=== PATIENT | male | born 1945 | race Caucasian/White ===

== ENCOUNTER 2021-01-11 12:08 | Emergency (ER) | payer MEDICARE ==
--- NOTE | 2021-01-11 13:07 | XRAY ---
Indication: Short of breath. Low blood pressure. Comparison: October 24, 2020. Portable chest now overpenetrated in technique, obscuring previous left hilar masslike opacity. Remaining lungs hyperinflated and clear with again incidental lingula calcified granuloma. Heart not enlarged with new right Port a Cath. Bony thorax intact again with left axillary esteban dissection.
[2021-01-11 13:20] LABS: Hematocrit 29.1 % (42-50); Hemoglobin 9.4 gm/dl (12.5-18.0); Mean Cell Volume 95.1 fl (78-100); Mean Corpuscular Hemoglobin 30.7 pg (26-32); Mean Corpuscular Hgb Concent. 32.3 g/dl (32-36); Mean Platelet Volume 10.2 fl (7.5-11.0); Platelet Count 250 K/mm3 (150-450); Red Blood Count 3.06 M/mm3 (4.1-5.6); Red Cell Distribution Width 15.2 % (11.5-14.0); White Blood Count 7.3 K/mm3 (4.0-10.5)
[2021-01-11 13:35] LABS: ALBUMIN 3.8 g/dL (3.5-5.0); ANION GAP 14.7 MEQ/L (5-15); BILIRUBIN,TOTAL 0.8 mg/dL (0.2-1.3); Calcium 9.5 mg/dL (8.4-10.2); Creatinine 1 2.51 mg/dL (0.66-1.25); EST GLOMERULAR FILTRATION RATE 26.8 ML/MIN; Potassium 3.1 mmol/L (3.5-5.1)
--- NOTE | 2021-01-11 13:36 | ERPHSYRPT ---
- History of Present Illness Time Seen by Provider: 01/11/21 12:30 Source: patient Exam Limitations: no limitations Patient Subjective Stated Complaint: Hypotension Triage Nursing Assessment: Patient brought back to ED via w/c and transferred to bed with assist of 1. Patient A+O X3. Patient's skin pink, warm and dry. Patient complains of weakness, hypotension and dizziness. Patient's reports blood pressure of 87/61 then error reading. 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 Patient had last radiation tx on Monday and 3/4 chemo treatments, which usually makes him weak for several weeks. Patient denies pain or discomfort. Physician History: Patient is a 75-year-old male with a history of small cell carcinoma left lung on chemo and radiation presents to our ED with his for evaluation of weakness dizziness. checked patient's blood pressure at home and it read 87/61. However this was associated with a air signal. Patient's blood pressure is normal in our ED. Patient feels somewhat short of breath. He states his throat feels dry. No fever. No nausea or vomiting. No diarrhea. No rash. Symptoms are constant. Symptoms are moderate in intensity. No specific worsening improving factors. at bedside. They voiced no other complaints or concerns at this time. Timing/Duration: today Severity: moderate Modifying Factors: Improves With: nothing Associated Symptoms: denies symptoms Allergies/Adverse Reactions: cefadroxil [From Ultracef] Allergy (Verified 01/11/21 12:47) Penicillins Allergy (Verified 01/11/21 12:47) Hx Influenza Vaccination/Date Given: Yes (2020) Immunizations Up to Date: Yes Travel Risk - International Travel Have you traveled outside of the country in past 3 weeks: No - Coronavirus Screening Are you exhibiting any of the following symptoms?: No Close contact with a COVID-19 positive Pt in past 14-21 Days: No - Vaccine Status Have you recieved a Covid-19 vaccination: Yes [employer] - Vaccination Dates Date of 2cond Vaccination (if applicable): June 2020 Comment: Booster October 2020 - Review of Systems Constitutional: No Symptoms, No Fever, No Chills Eyes: No Symptoms Ears, Nose, & Throat: No Symptoms Respiratory: No Symptoms, No Cough, No Dyspnea Cardiac: No Symptoms, No Chest Pain, No Edema, No Syncope Abdominal/Gastrointestinal: No Symptoms, No Abdominal Pain, No Nausea, No Vomiti ng, No Diarrhea Genitourinary Symptoms: No Symptoms, No Dysuria Musculoskeletal: No Symptoms, No Back Pain, No Neck Pain Skin: No Symptoms, No Rash Neurological: No Symptoms, No Dizziness, No Focal Weakness, No Sensory Changes Psychological: No Symptoms Endocrine: No Symptoms Hematologic/Lymphatic: No Symptoms Immunological/Allergic: No Symptoms All Other Systems: Reviewed and Negative - Past Medical History Pertinent Past Medical History: Yes ENT History: Macular Degeneration Cardiac History: Arrhythmia, High Cholesterol, Hypertension Other Medical History: small cell lung cancer left dx in October 2020. afib. macular degeneration Left eye - Past Surgical History Past Surgical History: Yes Neuro Surgical History: No Pertinent History Cardiac: No Pertinent History Respiratory: No Pertinent History Gastrointestinal: No Pertinent History Genitourinary: No Pertinent History Musculoskeletal: Orthopedic Surgery Male Surgical History: No Pertinent History Other Surgical History: Biopsy of throat for Cancer October 2020. Port placement October 2020. 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 Ly mph nodes removed from left arm 6 years ago. lower back surgery with rods/plates and screws 2009 - Social History Smoking Status: Former smoker Exposure to second hand smoke: No Drug Use: none Patient Lives Alone: No - Nursing Vital Signs Nursing Vital Signs: Initial Vital Signs Temperature 97.6 F 01/11/21 12:22 Pulse Rate 92 H 01/11/21 12:22 Respiratory Rate 18 01/11/21 12:22 Blood Pressure 126/96 01/11/21 12:22 O2 Sat by Pulse Oximetry 99 01/11/21 12:22 Pain Scale Pain Intensity 0 - Physical Exam General Appearance: no apparent distress, alert Eye Exam: PERRL/EOMI, eyes nml inspection Ears, Nose, Throat Exam: normal ENT inspection, TMs normal, pharynx normal, moist mucous membranes Neck Exam: normal inspection, non-tender, supple, full range of motion Respiratory Exam: normal breath sounds, lungs clear, airway intact, No respiratory distress Cardiovascular Exam: regular rate/rhythm, normal heart sounds, normal peripheral pulses Gastrointestinal/Abdomen Exam: soft, normal bowel sounds, No tenderness, No mass Back Exam: normal inspection, normal range of motion, No CVA tenderness, No vertebral tenderness Extremity Exam: normal inspection, normal range of motion, pelvis stable Neurologic Exam: alert, oriented x 3, cooperative, normal mood/affect, sensation nml, No motor deficits Skin Exam: normal color, warm, dry, No rash Lymphatic Exam: No adenopathy SpO2 Interpretation: normal SpO2: 100 O2 Delivery: Room Air - Course Nursing assessment & vital signs reviewed: Yes - Radiology Exams Chest X-ray Interpretation: Teleradiologist Report (Portable chest now shows overpenetrated technique previous left hilar masslike opacity. Remaining lungs are hyperinflated and clear with incidental lingula calcified granuloma. Heart not enlarged with no right Port-A-Cath. Bony thorax intact with left axillary esteban dissection.) Ordered Tests: Active Orders 24 hr Category Date Time Status Classified Ad Clerk STAT Care 01/11/21 12:38 Active IV Insertion STAT Care 01/11/21 12:38 Active Pulse Oximetry (ED) STAT Care 01/11/21 12:38 Active CHEST 1 VIEW (PORTABLE) Stat Exams 01/11/21 12:40 Completed CBC W DIFF Stat Lab 01/11/21 13:02 Completed CMP Stat Lab 01/11/21 13:02 Completed D-DIMER QUANTITATIVE Stat Lab 01/11/21 13:02 Completed MAGNESIUM Stat Lab 01/11/21 13:02 Completed Manual Differential NC Stat Lab 01/11/21 13:02 Completed Medication Summary Generic Name Dose Route Start Last Admin Trade Name Freq PRN Reason Stop Dose Admin Magnesium Sulfate/Dextrose 100 mls @ 100 mls/hr 01/11/21 13:45 01/11/21 15:14 Magnesium 1 Gm / 100 Ml D5w IV 01/11/21 15:44 100 mls/hr Q1H YUKO Administration Potassium Chloride 20 meq in 100 mls @ 50 mls/hr 01/11/21 14:30 01/11/21 16:45 Potassium Chloride 20 Meq In Water 100ml IV 01/11/21 18:29 50 mls/hr Q2H YUKO Administration Discontinued Medications Generic Name Dose Route Start Last Admin Trade Name Freq PRN Reason Stop Dose Admin Sodium Chloride 1,000 mls @ 999 mls/hr 01/11/21 13:38 01/11/21 15:24 Sodium Chloride 0.9% 1000 Ml IV 01/11/21 14:38 Infused .Q1H1M STA Infusion Sodium Chloride Confirm 01/11/21 13:53 Sodium Chloride 0.9% 1000 Ml Administered 01/11/21 13:54 Dose 1,000 mls @ ud .ROUTE .STK-MED ONE Ondansetron HCl 4 mg 01/11/21 13:50 01/11/21 13:55 Ondansetron Hcl 4 Mg/2 Ml Vial IV 01/11/21 13:51 4 mg STAT ONE Administration Ondansetron HCl Confirm 01/11/21 13:51 Ondansetron Hcl 4 Mg/2 Ml Vial Administered 01/11/21 13:52 Dose 4 mg .ROUTE .STK-MED ONE Potassium Chloride 40 meq 01/11/21 13:37 01/11/21 13:55 Potassium Chloride 10 Meq Tablet PO 01/11/21 13:38 10 meq STAT ONE Administration Potassium Chloride Confirm 01/11/21 13:52 Potassium Chloride 10 Meq Tablet Administered 01/11/21 13:53 Dose 40 meq PO .STK-MED ONE Lab/Rad Data: Laboratory Result Diagrams 01/11/21 13:02 01/11/21 13:02 Laboratory Results 01/11/21 01/11/21 01/11/21 Range/Units 13:02 13:02 13:02 WBC (4.0-10.5) K/mm3 RBC (4.1-5.6) M/mm3 Hgb (12.5-18.0) gm/dl Hct (42-50) % MCV (78-100) fl MCH (26-32) pg MCHC (32-36) g/dl RDW (11.5-14.0) % Plt Count (150-450) K/mm3 MPV (7.5-11.0) fl Segmented Neutrophils (36.-66.) % Band Neutrophils (0.0-2.0) % Lymphocytes (Manual) (24-44) % Toxic Granulation Platelet Estimate (NORMAL) RBC Morphology Anisocytosis D-Dimer 425 (215-500) ng/mL Sodium 140 (137-145) mmol/L Potassium 3.1 L (3.5-5.1) mmol/L Chloride 103 (98-107) mmol/L Carbon Dioxide 25 (22-30) mmol/L Anion Gap 14.7 (5-15) MEQ/L BUN 31 H (9-20) mg/dL Creatinine 2.51 H (0.66-1.25) mg/dL Estimated GFR 26.8 ML/MIN Glucose 112 H (74-106) mg/dL Calcium 9.5 (8.4-10.2) mg/dL Magnesium 1.5 L (1.6-2.3) mg/dL Total Bilirubin 0.80 (0.2-1.3) mg/dL AST 31 (17-59) U/L ALT 28 (0-50) U/L Alkaline Phosphatase 76 (38-126) U/L Serum Total Protein 7.0 (6.3-8.2) g/dL Albumin 3.8 (3.5-5.0) g/dL 01/11/21 Range/Units 13:02 WBC 7.3 (4.0-10.5) K/mm3 RBC 3.06 L (4.1-5.6) M/mm3 Hgb 9.4 L (12.5-18.0) gm/dl Hct 29.1 L (42-50) % MCV 95.1 (78-100) fl MCH 30.7 (26-32) pg MCHC 32.3 (32-36) g/dl RDW 15.2 H (11.5-14.0) % Plt Count 250 (150-450) K/mm3 MPV 10.2 (7.5-11.0) fl Segmented Neutrophils 92 H (36.-66.) % Band Neutrophils 1 (0.0-2.0) % Lymphocytes (Manual) 7 L (24-44) % Toxic Granulation 1+ Platelet Estimate NORMAL (NORMAL) RBC Morphology ABNORMAL Anisocytosis 1+ D-Dimer (215-500) ng/mL Sodium (137-145) mmol/L Potassium (3.5-5.1) mmol/L Chloride (98-107) mmol/L Carbon Dioxide (22-30) mmol/L Anion Gap (5-15) MEQ/L BUN (9-20) mg/dL Creatinine (0.66-1.25) mg/dL Estimated GFR ML/MIN Glucose (74-106) mg/dL Calcium (8.4-10.2) mg/dL Magnesium (1.6-2.3) mg/dL Total Bilirubin (0.2-1.3) mg/dL AST (17-59) U/L ALT (0-50) U/L Alkaline Phosphatase (38-126) U/L Serum Total Protein (6.3-8.2) g/dL Albumin (3.5-5.0) g/dL - Progress Progress: improved Progress Note: Patient 75-year-old male history of small cell lung cancer. Patient presents with weakness and dizziness. Work-up reveals electrolyte abnormalities as well as dehydration and acute renal injury. Family request transfer to [facility] as patient's oncologist is on staff at this particular hospital. Case discussed with Dr. Rosa who accepts transfer. Plan of care discussed with patient and family. They agree to transfer to [facility] for further evaluation and treatment. Patient stable. Rehydration and electrolyte repletion initiated. Portions of this note were created with voice recognition technology. There may be grammatical, spelling, punctuation or sound alike errors 01/11/21 17:05 Vital stable at time of transport. 01/11/21 17:09 Counseled pt/family regarding: lab results, diagnosis, rad results - Departure Departure Disposition: Home Clinical Impression: Dehydration, Acute renal injury, Hypokalemia, Hypomagnesemia, Generalized weakness, Anemia Condition: Stable Critical Care Time: No Referrals: VERO GUNDERSON NP [Primary Care Provider] - Follow up/PCP as directed
[2021-01-11] MEDS ORDERED: Klor Con 10 MEQ PO ONE ×2 (13:37→13:52)
[2021-01-11] MEDS ORDERED: Sodium Chloride 0.9% 1000 ML 1,000 ML IV STA (13:38)
[2021-01-11] MEDS ORDERED: Zofran 4 MG/2 ML VIAL IV ONE (13:50)
[2021-01-11] MEDS ORDERED: Zofran 4 MG/2 ML VIAL ONE (13:51)
[2021-01-11] MEDS ORDERED: Sodium Chloride 0.9% 1000 ML 1,000 ML ONE (13:53)
[2021-01-11] MEDS ORDERED: Magnesium 1 Gm / 100 Ml D5W*** 200 ML IV ONE (13:53)
[2021-01-11] MEDS: Magnesium 1 Gm / 100 Ml D5W*** 100 ML IV SCH ×2 (13:55→15:14)
[2021-01-11] MEDS: POTASSIUM CHLORIDE 20 mEq IN WATER 100ML 20 MEQ/100 ML BAG IV SCH ×2 (14:32→16:45)
[2021-01-11 15:09] LABS: ANISOCYTOSIS 1+; BAND 1 % (0.0-2.0); Lymphocytes 7 % (24-44); Neutrophils 92 % (36.-66.); Total Cells Counted 100
[2021-01-11 15:10] LABS: Platelet Estimate NORMAL (NORMAL); Toxic Granulation 1+
[2021-01-11 17:12] VITALS: BP 126/86; PULSE 94; O2SAT 100
== END 2021-01-11 17:20 | disposition short-term general hospital (02) ==
LOC: ED 12:08
DX: N28.9 Disorder of kidney and ureter, unspecified (principal); E86.0 Dehydration; E87.6 Hypokalemia; E83.42 Hypomagnesemia; R53.1 Weakness; D64.9 Anemia, unspecified; R06.02 Shortness of breath; E78.5 Hyperlipidemia, unspecified; I10 Essential (primary) hypertension; C34.92 Malignant neoplasm of unspecified part of left bronchus or lung
CPT/HCPCS: 36000; 36415; 71045; 80053; 83735; 85025; 85379; 93041; 94760; 96360; 96365; 96367; 96374; 99285; J2405; J3475; J3480; A9270-GY